=== PATIENT | female | born 1990 | race Hispanic/Latino ===

== ENCOUNTER 2018-02-14 17:14 | Emergency (ER) | payer OTHER ==
[2018-02-14 17:43] VITALS: O2SAT 100
[2018-02-14] MEDS ORDERED: Sodium Chloride 0.9% 1,000 ML IV ONE (18:13)
[2018-02-14] MEDS ORDERED: Sodium Chloride 0.9% 1,000 ML ONE (18:18)
[2018-02-14 18:23] LABS: SQUAMOUS EPITHIAL < 1 /hpf (0-5); URINE BACTERIA RARE (<OCC); URINE BILIRUBIN NEGATIVE (NEGATIVE); URINE BLOOD 3+ (NEGATIVE); URINE CLARITY Clear (Clear); URINE COLOR Straw (YELLOW); URINE GLUCOSE (UA) NORMAL (Normal); URINE LEUKOCYTE ESTERASE NEG Leu/uL (Negative); URINE PROTEIN NEGATIVE (NEGATIVE); URINE UROBILINOGEN NORMAL mg/dL (0.2-1.0)
[2018-02-14 18:30] LABS: BASO % 0.4 % (0.0-2.0); EOS # 0.1 K/uL (0.0-0.7); EOS % 1.2 % (0.0-4.0); HEMOGLOBIN 14.8 g/dL (11.0-16.0); LYMPH # 1.8 K/uL (1.0-4.3); LYMPH % 32.1 % (20.0-40.0); MEAN CELL VOLUME 90.4 fL (81.0-99.0); MEAN CORPUSCULAR HEMOGLOBIN 31.1 pg (27.0-31.0); MEAN CORPUSCULAR HGB CONC 34.4 g/dL (33.0-37.0); MEAN PLATELET VOLUME 9.6 fL (7.2-11.7); MONO # 0.4 K/uL (0.0-0.8); MONO % 6.5 % (0.0-10.0); NEUT # 3.4 K/uL (1.8-7.0); NEUT % 59.8 % (50.0-75.0); NRBC % 0.1 % (0.0-2.0); RBC 4.74 Mil/uL (3.80-5.20); WHITE BLOOD COUNT 5.7 K/uL (4.8-10.8)
[2018-02-14 18:39] LABS: ALB/GLOB RATIO 1.3 (1.0-2.1); ALBUMIN 4.1 g/dL (3.5-5.0); ALT/SGPT 15 U/L (9-52); AST/SGOT 18 U/L (14-36); BLOOD UREA NITROGEN 13 mg/dL (7-17); CALCIUM 8.9 mg/dl (8.6-10.4); GFR AFRICAN-AMERICAN > 60; GFR NON-AFRICAN AMERICAN > 60; LIPASE 48 U/L (23-300)
--- NOTE | 2018-02-14 19:54 | C.PDOC ---
History Of Present Illness 27-year-old female, presents to the emergency department with complaints of sudden onset left pelvic pain that started at 09:00 this morning. Pain is non- radiating and sharp. Patient states she went to an urgent care who recommended that she should be seen by ER. Patient denies vomiting, diarrhea, fevers, trauma , travel or any other associated symptoms. No other complaints at this time. Time Seen by Provider: 02/14/18 17:47 Chief Complaint (Nursing): Female Genitourinary History Per: Patient History/Exam Limitations: no limitations Onset/Duration Of Symptoms: Days Current Symptoms Are (Timing): Still Present Severity: Moderate Pain Scale Rating Of: 6 Quality Of Discomfort: "Pain" Associated Symptoms: denies: Urinary Symptoms Alleviating Factors: None Recent travel outside of the [place]: No Additional History Per: Patient (Last bowel movement was today at 3 pm) Past Medical History Reviewed: Historical Data, Nursing Documentation, Vital Signs Vital Signs: Last Vital Signs Temp 98.2 F 02/14/18 21:12 Pulse 71 02/14/18 21:12 Resp 20 02/14/18 21:12 BP 109/70 02/14/18 21:12 Pulse Ox 100 02/15/18 19:27 - Medical History PMH: No Chronic Diseases Surgical History: No Surg Hx Family History: States: No Known Family Hx - Social History Hx Alcohol Use: No Hx Substance Use: No - Immunization History Hx Tetanus Toxoid Vaccination: (unk) Hx Influenza Vaccination: No Hx Pneumococcal Vaccination: No Review Of Systems Except As Marked, All Systems Reviewed And Found Negative. Constitutional: Negative for: Fever, Chills Gastrointestinal: Positive for: Abdominal Pain. Negative for: Vomiting Genitourinary: Positive for: Vaginal Bleeding. Negative for: Dysuria, Hematuria Musculoskeletal: Negative for: Back Pain Skin: Negative for: Rash Neurological: Negative for: Weakness, Numbness, Headache, Dizziness Physical Exam - Physical Exam Appears: Non-toxic, No Acute Distress Skin: Warm, Dry, No Rash Head: Atraumatic, Normacephalic Eye(s): bilateral: Normal Inspection, PERRL, EOMI Nose: Normal Oral Mucosa: Moist Lips: Normal Appearing Throat: No Erythema, No Exudate Neck: Normal ROM, Supple Cardiovascular: Rhythm Regular, No Friction Rub, No Murmur Respiratory: Normal Breath Sounds, No Decreased Breath Sounds, No Accessory Muscle Use Gastrointestinal/Abdominal: Soft, Tenderness (LLQ tenderness), No Guarding, No Rebound Pelvic: Normal External Exam, Normal Bimanual Exam, Vaginal Bleeding, No Vaginal Discharge, No Cervical Motion Tenderness, Other (Cervix is closed. Horseshoer: Kylie Stapleton (RN)) Extremity: Normal ROM, No Deformity, No Swelling Neurological/Psych: Oriented x3, Normal Speech, Normal Motor, Normal Sensation Gait: Steady ED Course And Treatment - Laboratory Results Result Diagrams: 02/14/18 18:23 02/14/18 18:23 O2 Sat by Pulse Oximetry: 100 (RA) Pulse Ox Interpretation: Normal - CT Scan/US TRANSVAGINAL US Other Rad Studies (CT/US): Read By Radiologist, Radiology Report Reviewed CT/US Interpretation: [facility]. [facility] Radiology [facility]. Final Radiology Report [id number]. Name: SALEEM BISWAS Age: 27Years F Date: 02/14/2018. SSN: [id number] : 1990. Study: US TRANSVAGINAL NON-OB Requesting Physician: Tita Gallo. Images: 1. Addl Studies: [id number] - US PELVIS COMP NON-OB (0). Provided Clinical History: L sided pelvic pain, r/o torsion, cyst. CONFIDENTIALITY STATEMENT. This transmission is confidential and is intended to be a privileged communication. It is intended only for the use of the addressee. Access to this. message by anyone else is unauthorized. If you are not the intended recipient, any disclosure, copying, distribution or any action taken, or omitted to. be taken in reliance on it is prohibited and may be unlawful. If you received this communication in error, please notify us by telephone, so that return. of this document to us can be arranged. Page 1 of 3. EXAM: US Pelvis Complete, Transabdominal. US Pelvis, Transvaginal. US Duplex Arterial/ Venous of the Pelvis, Complete. CLINICAL HISTORY: 27 years old, female; Pain; Pelvic pain; Additional info: L sided pelvic pain, R/O torsion, cyst. TECHNIQUE : Real-time transabdominal and transvaginal pelvic ultrasound (complete) with image documentation. Transvaginal imaging was used for better evaluation of the endometrium and adnexa. Real-time. duplex ultrasound scan of the arterial and venous flow of the pelvis with color Doppler flow and. spectral waveform analysis. COMPARISON: No relevant prior studies available. FINDINGS: Uterus/ cervix: The uterus measures 7.1 x 2.9 x 4.1 cm. The endometrial stripe measures 4 mm. No. myometrial mass. The ovaries are not seen as separate structures due to bowel gas and limitations imposed by patient. body habitus.. Free fluid : No free fluid. Bladder: Unremarkable as visualized. Wall is normal thickness for degree of distention. IMPRESSION: Nonvisualization of the ovaries. [facility]. [employer] Radiology [facility]. Final Radiology Report [id number]. Name: SALEEM BISWAS Age: 27Years F Date: 02/14/2018. : 1990. Study: US TRANSVAGINAL NON-OB Requesting Physician: Tita Gallo. Images: 1. Addl Studies: [id number] - US PELVIS COMP NON-OB (0). Provided Clinical History: L sided pelvic pain, r/o torsion, cyst. CONFIDENTIALITY STATEMENT. This transmission is confidential and is intended to be a privileged communication. It is intended only for the use of the addressee. Access to this. message by anyone else is unauthorized. If you are not the intended recipient, any disclosure, copying, distribution or any action taken, or omitted to. be taken in reliance on it is prohibited and may be unlawful. If you received this communication in error, please notify us by telephone, so that return. of this document to us can be arranged. Page 2 of 3. 2. Normal ultrasound appearance of the uterus. . EXAM: US pelvis, Transvaginal. EXAM DATE/TIME: Exam ordered 02/14/2018 6:14 PM. CLINICAL HISTORY: 27 years old, female; Pain; Pelvic pain; Additional info: L sided pelvic pain, R/O torsion, cyst. TECHNIQUE: Real-time transvaginal obstetrical ultrasound of the female pelvis with image documentation. Transvaginal imaging was used for better evaluation of the adnexa. COMPARISON: No relevant prior studies available. FINDINGS: Placenta/amniotic fluid: Cannot be adequately evaluated due to the early gestational age. Uterus/cervix: The uterus measures 5.3 x 2.6 x 3.6 cm. No myometrial mass. Ovaries: Right ovary measures 3 x 1 x 2.2 cm. And 1.1 cm complex follicles noted. Blood flow is. seen in the right ovary on color Doppler examination. The left ovary measures 2.7 x 1.4 x 2.1 cm. [facility]. [facility] Radiology [facility]. Final Radiology Report [id number]. Name: SALEEM BISWAS Age: 27Years F Date: 02/14/2018. SSN: [id number] : 1990. Study: US TRANSVAGINAL NON-OB Requesting Physician : Tita Gallo. Images: 1. Addl Studies: [id number] - US PELVIS COMP NON-OB (0). Provided Clinical History: L sided pelvic pain, r/o torsion, cyst. CONFIDENTIALITY STATEMENT. This transmission is confidential and is intended to be a privileged communication. It is intended only for the use of the addressee. Access to this. message by anyone else is unauthorized. If you are not the intended recipient, any disclosure, copying, distribution or any action taken, or omitted to. be taken in reliance on it is prohibited and may be unlawful. If you received this communication in error, please notify us by telephone, so that return. of this document to us can be arranged. Page 3 of 3 Medical Decision Making Medical Decision Making: Old records reviewed, no prior visits. Pelvic exam is normal, no evidence of PID or vaginitis. On first re-exam, the patient reports that the pain has mildly improved but still has pain. Pain medications offered but patient refuses. Pelviic Us was unremarkable. CT Abd/pelvis ordered. CT Abd/pelvis is negative. On re-exam the patient reports improvement of symptoms. Abdomen is soft, non-tender and tolerating PO well. Lungs are CTA, Pulse ox: 99% on RA, heart is RRR. Follow up with the medical doctor within 1-2 days. return if worsened. Disposition - Disposition Referrals: [facility] [Outside] Disposition: HOME/ ROUTINE Disposition Time: 22:57 Condition: GOOD Additional Instructions: Follow up with the medical doctor within 1-2 days. return if worsened. Prescriptions: Famotidine [Pepcid] 20 mg PO BID #20 tab Ibuprofen [Motrin] 600 mg PO TID #21 tab Polyethylene Glycol 3350 [Miralax] 17 gm PO DAILY PRN #100 ml PRN Reason: Constipation Instructions: Acute Abdomen (Belly Pain), Adult (DC) Forms: [employer] (Telugu) - Clinical Impression Clinical Impression: Abdominal pain, Constipation - Scribe Statement The provider has reviewed the documentation as recorded by the Scribe (Aniket Figueroa) All medical record entries made by the Scribe were at my direction and personally dictated by me. I have reviewed the chart and agree that the record accurately reflects my personal performance of the history, physical exam, medical decision making, and the department course for this patient. I have also personally directed, reviewed, and agree with the discharge instructions and disposition.
--- NOTE | 2018-02-14 20:57 | US ---
EXAM: US Pelvis Complete, Transabdominal US Pelvis, Transvaginal US Duplex Arterial/Venous of the Pelvis, Complete CLINICAL HISTORY: 27 years old, female; Pain; Pelvic pain; Additional info: L sided pelvic pain, R/O torsion, cyst TECHNIQUE: Real-time transabdominal and transvaginal pelvic ultrasound (complete) with image documentation. Transvaginal imaging was used for better evaluation of the endometrium and adnexa. Real-time duplex ultrasound scan of the arterial and venous flow of the pelvis with color Doppler flow and spectral waveform analysis. COMPARISON: No relevant prior studies available. FINDINGS: Uterus/cervix: The uterus measures 7.1 x 2.9 x 4.1 cm. The endometrial stripe measures 4 mm. No myometrial mass. The ovaries are not seen as separate structures due to bowel gas and limitations imposed by patient body habitus.. Free fluid: No free fluid. Bladder: Unremarkable as visualized. Wall is normal thickness for degree of distention. IMPRESSION: Nonvisualization of the ovaries. 2. Normal ultrasound appearance of the uterus. EXAM: US pelvis, Transvaginal EXAM DATE/TIME: Exam ordered 02/14/2018 6:14 PM CLINICAL HISTORY: 27 years old, female; Pain; Pelvic pain; Additional info: L sided pelvic pain, R/O torsion, cyst TECHNIQUE: Real-time transvaginal obstetrical ultrasound of the female pelvis with image documentation. Transvaginal imaging was used for better evaluation of the adnexa. COMPARISON: No relevant prior studies available. FINDINGS: Placenta/amniotic fluid: Cannot be adequately evaluated due to the early gestational age. Uterus/cervix: The uterus measures 5.3 x 2.6 x 3.6 cm. No myometrial mass. Ovaries: Right ovary measures 3 x 1 x 2.2 cm. And 1.1 cm complex follicles noted. Blood flow is seen in the right ovary on color Doppler examination. The left ovary measures 2.7 x 1.4 x 2.1 cm. Subcentimeter follicles are seen in the left ovary. Blood flow seen in the left ovary on pulsed Doppler examination. Free fluid: A small amount of free fluid is seen in the posterior cul-de-sac. Other findings: The individual stripe measures 6 mm. IMPRESSION: No acute findings.
[2018-02-14 21:12] VITALS: BP 109/70; PULSE 71; RESP 20; TEMP 98.2
[2018-02-14] MEDS ORDERED: Iodixanol 320 mg/ml 150 ml Bottle IV ONE (21:48)
--- NOTE | 2018-02-14 22:26 | CT ---
EXAM: CT Abdomen and Pelvis With Intravenous Contrast EXAM DATE/TIME: Exam ordered 02/14/2018 9:04 PM CLINICAL HISTORY: 27 years old, female; Pain; Abdominal pain; Localized; Left lower quadrant (llq); Additional info: Llq abd pain, TECHNIQUE: Axial computed tomography images of the abdomen and pelvis with intravenous contrast. All CT scans at this facility use one or more dose reduction techniques, viz.: automated exposure control; ma/kV adjustment per patient size (including targeted exams where dose is matched to indication; i.e. head); or iterative reconstruction technique. Coronal and sagittal reformatted images were created and reviewed. CONTRAST: 100 mL of visipaque 320 administered intravenously. COMPARISON: PELVIS/TRANSVAG US 2018-02-14 20:01 FINDINGS: Lung bases: Unremarkable. No mass. No consolidation. ABDOMEN: Liver: Unremarkable. No mass. Gallbladder and bile ducts: Unremarkable. No calcified stones. No ductal dilation. Pancreas: Unremarkable. No mass. No ductal dilation. 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 Adrenals: Unremarkable. No mass. Kidneys and ureters: Unremarkable. No solid mass. No hydronephrosis. Stomach and bowel: There is a moderate amount of stool seen within the colon. No obstruction. No mucosal thickening. Appendix: No findings to suggest acute appendicitis. PELVIS: Bladder: Unremarkable. No mass. Reproductive: Unremarkable as visualized. ABDOMEN and PELVIS: Intraperitoneal space: Unremarkable. No free air. No significant fluid collection. Bones/joints: No acute fracture. No dislocation. Soft tissues: Unremarkable. Vasculature: Unremarkable. No abdominal aortic aneurysm. Lymph nodes: Unremarkable. No enlarged lymph nodes. IMPRESSION: 1. No acute findings. 2. Moderate amount of stool in the colon
== END 2018-02-14 23:05 | disposition home or self-care (01) ==
LOC: C.ER 17:14
DX: K59.00 Constipation, unspecified (principal); R10.2 Pelvic and perineal pain
CPT/HCPCS: 74177; 76830; 76856; 80053; 81001; 83690; 84703; 85025; 96361; 96374; 99285; J1885; J7040; Q9967